=== PATIENT | female | born 1995 | race Native Hawaiian/Other Pacific Islander ===

== ENCOUNTER 2018-09-28 18:58 | Emergency (ER) | payer OTHER ==
[~2018-09-28] VITALS: Ht 157.5 cm; Wt 61.2 kg
[2018-09-28] MEDS ORDERED: [UNRECOGNIZED DRUG - OTHER] PO (19:11)
[2018-09-28 19:43] LABS: PLATELET COUNT 242 K/uL (152-353)
[2018-09-28 19:48] LABS: POTASSIUM 3.9 mmol/L (3.6-5.2)
[2018-09-28 21:18] VITALS: BP 119/71; TEMP 97.5
== END 2018-09-28 21:18 | disposition home or self-care (01) ==
LOC: ED 18:58
PROVIDERS: Emergency Medicine
DX: N20.0 Calculus of kidney (principal)
CPT/HCPCS: 36415; 80053; 81000; 81025; 85027; 99283

== ENCOUNTER 2020-05-19 08:33 | Outpatient (CLI) | payer OTHER ==
[~2020-05-19 08:33] MED LIST: [UNRECOGNIZED DRUG - OTHER] PO
== END 2020-05-19 21:45 | disposition home or self-care (01) ==
LOC: MAMMO 08:33
PROVIDERS: ATTEND Plastic Surgery
DX: N64.89 Other specified disorders of breast (principal); Z98.82 Breast implant status

== ENCOUNTER 2021-11-10 19:33 | Emergency (ER) | payer OTHER ==
[~2021-11-10] VITALS: Ht 157.5 cm; Wt 54.0 kg
[2021-11-10 22:05] LABS: PLATELET COUNT 269 K/uL (152-353)
[2021-11-10 22:12] LABS: POTASSIUM 3.6 mmol/L (3.6-5.2)
[2021-11-10 23:20] VITALS: BP 116/78; TEMP 98.9
== END 2021-11-10 23:20 | disposition home or self-care (01) ==
LOC: ED 19:33
PROVIDERS: Emergency Medicine
DX: O20.0 Threatened abortion (principal); Z3A.01 Less than 8 weeks gestation of pregnancy
CPT/HCPCS: 36415; 80053; 81000; 84702; 85027; 85610; 85730; 99284